=== PATIENT | female | born 1945 | race Caucasian/White ===

== ENCOUNTER 2016-04-18 19:45 | Emergency (ER) | payer OTHER ==
[~2016-04-18 19:45] MED LIST: ABILIFY2 MG PO; ASPIR 8181 MG PO; BACLOFEN10 MG PO; BACLOFEN20 MG PO; CARVEDILOL25 MG PO; CLOPIDOGREL75 MG PO; COLACE 100MG C100 MG PO; DITROPAN XL 5 MG5 MG PO; ESCITALOPRAM OX10 MG PO; LEVOTHYROXINE137 MCG PO; METOLAZONE2.5 MG PO; MORPHINE SULFAT15 M2 PO; MS CONTIN TAB S15 MG PO; NAMENDA5 MG PO; NOVOLIN 70100 UNIT/1 SC; PANTOPRAZOLE SO40 MG PO; PRAVASTATIN SOD40 MG PO
[2016-04-19 06:52] LABS: RED BLOOD COUNT 4.52 M/UL (4.00-5.10); WHITE BLOOD COUNT 11.1 K/UL (4.5-11.0)
[2016-11-02] MEDS ORDERED: NOVOLOG FL100 UNIT/1 SC (00:56)
[2016-11-02] MEDS ORDERED: LEVOTHYROXINE175 MCG PO (00:56)
[2016-11-02] MEDS ORDERED: BREO ELLIPTA 11 EACH INH (00:59)
[2016-11-02] MEDS ORDERED: ALBUTEROL2.5 MG/3 M NEB (01:04)
[2016-11-02] MEDS ORDERED: LASIX40 MG PO (01:05)
[2016-11-02] MEDS ORDERED: ROPINIROLE HCL0.5 MG PO (01:05)
[2016-11-02] MEDS ORDERED: LINZESS290 MCG PO (01:05)
[2016-11-02] MEDS ORDERED: VICTOZA 1818 MG/3 ML SC (01:08)
[2016-11-02] MEDS ORDERED: POTASSIUM CHLO10 ME1 PO (01:08)
[2016-11-02] MEDS ORDERED: SYMBICORT 16010.2 GM INH (01:10)
[2016-11-12] MEDS ORDERED: MYCOSTATIN POWD15 GM EXT (19:31)
== END 2016-04-19 08:20 | disposition home or self-care (01) ==
LOC: ER1 19:45
PROVIDERS: Physician Assistant
DX: R60.0 Localized edema (principal); E11.65 Type 2 diabetes mellitus with hyperglycemia; R06.02 Shortness of breath; I25.2 Old myocardial infarction; J44.9 Chronic obstructive pulmonary disease, unspecified; I10 Essential (primary) hypertension; E78.5 Hyperlipidemia, unspecified; E11.40 Type 2 diabetes mellitus with diabetic neuropathy, unspecified; E07.9 Disorder of thyroid, unspecified; F17.210 Nicotine dependence, cigarettes, uncomplicated; Z88.2 Allergy status to sulfonamides; Z88.8 Allergy status to other drugs, medicaments and biological substances; Z79.82 Long term (current) use of aspirin; Z79.02 Long term (current) use of antithrombotics/antiplatelets
CPT/HCPCS: 36415; 71010; 80053; 82550; 82553; 83874; 83880; 84484; 85025; 93005; 99285

== ENCOUNTER → 2016-04-26 | Outpatient (CLI) | payer OTHER ==
[~2016-04-26] MED LIST changes: +ALBUTEROL2.5 MG/3 M NEB; +AZITHROMYCIN500 MG PO; +BREO ELLIPTA 11 EACH INH; +CATAPRES 0.1MG0.1 MG PO; +CEFTIN250 MG/5 M PO; +COMBIVENT0.074 GM/I INH; +COREG 12.5MG12.5 MG PO; +DESYREL 50 MG T50 MG PO; +GLUCOPHAGE500 MG PO; +LASIX20 MG PO; +LASIX40 MG PO; +LEVOTHYROXINE175 MCG PO; +LINZESS290 MCG PO; +LORTAB 5-325 M1 EACH PO; +MYCOSTATIN POWD15 GM EXT; +NORVASC 5 MG TAB5 MG PO; +NOVOLOG FL100 UNIT/1 SC; +POTASSIUM CHLO10 ME1 PO; +ROPINIROLE HCL0.5 MG PO; +SYMBICORT 16010.2 GM INH; +TRESIBA; +VICTOZA 1818 MG/3 ML SC; +ZANTAC300 MG PO
[2016-04-26 19:09] LABS: HEMOGLOBIN 11.6 gm/dl (12.3-15.3); RED BLOOD COUNT 4.06 M/UL (4.00-5.10); WHITE BLOOD COUNT 11.1 K/UL (4.5-11.0)
== END ==
LOC: LAB 17:49
PROVIDERS: Internal Medicine
DX: R30.9 Painful micturition, unspecified (principal); R60.9 Edema, unspecified; I10 Essential (primary) hypertension
CPT/HCPCS: 80053; 81001; 85025; 87086

== ENCOUNTER 2016-05-05 20:37 | Observation (INO) | payer OTHER ==
[~2016-05-05] VITALS: Ht 175.3 cm; Wt 124.7 kg
[~2016-05-05 20:37] MED LIST changes: -ALBUTEROL2.5 MG/3 M NEB; -AZITHROMYCIN500 MG PO; -BREO ELLIPTA 11 EACH INH; -CATAPRES 0.1MG0.1 MG PO; -CEFTIN250 MG/5 M PO; -COMBIVENT0.074 GM/I INH; -COREG 12.5MG12.5 MG PO; -DESYREL 50 MG T50 MG PO; -GLUCOPHAGE500 MG PO; -LASIX20 MG PO; -LASIX40 MG PO; -LEVOTHYROXINE175 MCG PO; -LINZESS290 MCG PO; -LORTAB 5-325 M1 EACH PO; -MYCOSTATIN POWD15 GM EXT; -NORVASC 5 MG TAB5 MG PO; -NOVOLOG FL100 UNIT/1 SC; -POTASSIUM CHLO10 ME1 PO; -ROPINIROLE HCL0.5 MG PO; -SYMBICORT 16010.2 GM INH; -TRESIBA; -VICTOZA 1818 MG/3 ML SC; -ZANTAC300 MG PO
[2016-05-05 21:10] LABS: HEMOGLOBIN 11.2 gm/dl (12.3-15.3); RED BLOOD COUNT 3.89 M/UL (4.00-5.10); WHITE BLOOD COUNT 12.1 K/UL (4.5-11.0)
[2016-05-06] MEDS ORDERED: COREG 12.5MG12.5 MG PO (00:49)
[2016-05-06] MEDS ORDERED: CATAPRES 0.1MG0.1 MG PO (00:50)
[2016-05-06] MEDS ORDERED: NORVASC 5 MG TAB5 MG PO (00:51)
[2016-05-06] MEDS ORDERED: ZANTAC300 MG PO (00:52)
[2016-05-06] MEDS ORDERED: LORTAB 5-325 M1 EACH PO (00:58)
[2016-05-06] MEDS ORDERED: DESYREL 50 MG T50 MG PO (01:02)
[2016-05-06] MEDS ORDERED: NOVOLOG FL100 UNIT/1 SC (01:04)
[2016-05-06] MEDS ORDERED: TRESIBA (01:05)
[2016-05-06] MEDS ORDERED: GLUCOPHAGE500 MG PO (01:06)
[2016-05-06] MEDS ORDERED: LASIX20 MG PO (01:07)
[2016-05-06 05:45] LABS: HEMOGLOBIN 11.4 gm/dl (12.3-15.3); RED BLOOD COUNT 3.95 M/UL (4.00-5.10); WHITE BLOOD COUNT 11.5 K/UL (4.5-11.0)
[2016-05-07 06:06] LABS: HEMOGLOBIN 10.2 gm/dl (12.3-15.3); RED BLOOD COUNT 3.57 M/UL (4.00-5.10); WHITE BLOOD COUNT 10.4 K/UL (4.5-11.0)
[2016-05-07] MEDS ORDERED: AZITHROMYCIN500 MG PO (11:58)
[2016-05-07] MEDS ORDERED: COMBIVENT0.074 GM/I INH (11:58)
[2016-05-07] MEDS ORDERED: CEFTIN250 MG/5 M PO (11:59)
[2016-11-02] MEDS ORDERED: LEVOTHYROXINE175 MCG PO (00:56)
[2016-11-02] MEDS ORDERED: NOVOLOG FL100 UNIT/1 SC (00:56)
[2016-11-02] MEDS ORDERED: BREO ELLIPTA 11 EACH INH (00:59)
[2016-11-02] MEDS ORDERED: ALBUTEROL2.5 MG/3 M NEB (01:04)
[2016-11-02] MEDS ORDERED: LASIX40 MG PO (01:05)
[2016-11-02] MEDS ORDERED: ROPINIROLE HCL0.5 MG PO (01:05)
[2016-11-02] MEDS ORDERED: LINZESS290 MCG PO (01:05)
[2016-11-02] MEDS ORDERED: VICTOZA 1818 MG/3 ML SC (01:08)
[2016-11-02] MEDS ORDERED: POTASSIUM CHLO10 ME1 PO (01:08)
[2016-11-02] MEDS ORDERED: SYMBICORT 16010.2 GM INH (01:10)
[2016-11-12] MEDS ORDERED: MYCOSTATIN POWD15 GM EXT (19:31)
== END 2016-05-07 13:22 | disposition home or self-care (01) ==
LOC: ER1 20:37 → ZEROF 23:10 → M/S 23:10
PROVIDERS: Emergency Medicine; Physician Assistant; ADMIT Internal Medicine
DX: J18.9 Pneumonia, unspecified organism (principal); I12.9 Hypertensive chronic kidney disease with stage 1 through stage 4 chronic kidney disease, or unspecified chronic kidney disease; E11.22 Type 2 diabetes mellitus with diabetic chronic kidney disease; N18.3 Chronic kidney disease, stage 3 (moderate); I25.10 Atherosclerotic heart disease of native coronary artery without angina pectoris; E78.5 Hyperlipidemia, unspecified; G47.33 Obstructive sleep apnea (adult) (pediatric); J44.9 Chronic obstructive pulmonary disease, unspecified; R09.02 Hypoxemia; Z86.73 Personal history of transient ischemic attack (TIA), and cerebral infarction without residual deficits; Z85.53 Personal history of malignant neoplasm of renal pelvis; Z90.5 Acquired absence of kidney; Z79.82 Long term (current) use of aspirin; Z79.891 Long term (current) use of opiate analgesic; Z79.899 Other long term (current) drug therapy
CPT/HCPCS: 36415; 71010; 80048; 80053; 81001; 82550; 82553; 82962; 83874; 83880; 84484; 85025; 85027; 85610; 85730; 87040; 87086; 93005; 94640; 94664; 96365; 96367; 96372; 96375; 99285; G0378; J0456; J0696; J1650; J1940; J7030; J7050

== ENCOUNTER → 2016-07-20 | Outpatient (CLI) | payer OTHER ==
[~2016-07-20] MED LIST changes: +ALBUTEROL2.5 MG/3 M NEB; +AZITHROMYCIN500 MG PO; +BREO ELLIPTA 11 EACH INH; +CATAPRES 0.1MG0.1 MG PO; +CEFTIN250 MG/5 M PO; +COMBIVENT0.074 GM/I INH; +COREG 12.5MG12.5 MG PO; +DESYREL 50 MG T50 MG PO; +GLUCOPHAGE500 MG PO; +LASIX20 MG PO; +LASIX40 MG PO; +LEVOTHYROXINE175 MCG PO; +LINZESS290 MCG PO; +LORTAB 5-325 M1 EACH PO; +MYCOSTATIN POWD15 GM EXT; +NORVASC 5 MG TAB5 MG PO; +NOVOLOG FL100 UNIT/1 SC; +POTASSIUM CHLO10 ME1 PO; +ROPINIROLE HCL0.5 MG PO; +SYMBICORT 16010.2 GM INH; +TRESIBA; +VICTOZA 1818 MG/3 ML SC; +ZANTAC300 MG PO
== END ==
LOC: KOH-I 13:30
DX: N18.3 Chronic kidney disease, stage 3 (moderate) (principal); R06.02 Shortness of breath; R09.89 Other specified symptoms and signs involving the circulatory and respiratory systems; Z90.5 Acquired absence of kidney
CPT/HCPCS: 71020; 76775